=== PATIENT | female | born 1995 | race Caucasian/White ===

== ENCOUNTER → 2022-07-02 15:03 | Outpatient (BNVA) | payer OTHER, SELFPAY | PROVIDERS: PCP Internal Medicine; Visit Provider Nurse Practitioner Family | DX: Z13.89 Encounter for screening for other disorder (principal) ==

== ENCOUNTER 2022-08-13 15:08 | Outpatient (REF) | payer OTHER, SELFPAY ==
--- NOTE | ~2022-08-13 | CT_ITS ---
EXAMINATION: CT HEAD WITHOUT CONTRAST CLINICAL INFORMATION: Migraine COMPARISON: None available. TECHNIQUE: Contiguous axial imaging was performed from the skull base to vertex without intravenous administration of contrast. This CT examination was performed using dose optimization techniques as appropriate, variously including the following: *Automated exposure control *Adjustment of mA and/or kV according to patient size (this includes techniques or standardized protocols for targeted exams where dose is matched to indication/reason for exam; i.e. extremities or head) *Use of iterative reconstruction technique DLP: 847 mGy-cm FINDINGS: There is no evidence of an extra-axial collection. There is no evidence of intra-axial or extra-axial hemorrhage. Ventricles and extra-axial CSF spaces are appropriate. Dennison-white matter differentiation is normal. No mass, mass effect or infarct. Review of bone windows is normal. Paranasal sinuses, mastoid air cells and middle ears are clear. CT/CT head/brain wo IV con IMPRESSION: Unremarkable exam.
== END 2022-08-13 15:09 | disposition home or self-care (01) ==
LOC: HO.CT 15:08
PROVIDERS: PCP Registered Nurse; Visit Provider Nurse Practitioner Family
DX: G43.009 Migraine without aura, not intractable, without status migrainosus (principal); Z82.49 Family history of ischemic heart disease and other diseases of the circulatory system
CPT/HCPCS: 70450

== ENCOUNTER 2022-10-15 15:27 | Outpatient (REF) | payer OTHER, SELFPAY ==
--- NOTE | ~2022-10-15 | CT_ITS ---
CT ANGIOGRAM BRAIN, HEAD CLINICAL INFORMATION: Migraine headaches. COMPARISON: Head CT 08/13/2022. TECHNIQUE: Test bolus sequences followed by intravenous administration 75 mL of Omnipaque 350 intravenous contrast. Helical imaging was performed in the axial plane from the skull base to the vertex. Delayed postcontrast imaging of the head was also performed. The data was processed at the cytotechnologist/histotechnologist workstation for generation of MIP sequences. Three-dimensional volume rendered reformatted images were also generated at an offline 3-D workstation. The degree of stenosis determined by NASCET criteria. This CT examination was performed using dose optimization techniques as appropriate, variously including the following: *Automated exposure control *Adjustment of mA and/or kV according to patient size (this includes techniques or standardized protocols for targeted exams where dose is matched to indication/reason for exam; i.e. extremities or head) *Use of iterative reconstruction technique FINDINGS: Very limited CTA of the head due to mixed arterial/venous bolus phase timing. The proximal arterial vasculature remains patent. Nondiagnostic assessment for aneurysms due to the degree of artifact. If there is high clinical suspicion for an underlying aneurysm, consider a MRA of the head or repeat CTA for further assessment. There is no pathologic enhancement intracranially. There is no intracranial hemorrhage, hydrocephalus, extra-axial surface collection, midline shift, or other herniation pattern. Dennison to white matter differentiation is diffusely maintained without evidence of an evolved acute territorial infarct. The basilar cisterns are preserved. No significant soft tissue abnormality. No acute osseous abnormality. The paranasal sinuses and the mastoid air cells are well aerated. CT/CT angio head IMPRESSION: Very limited CTA of the head due to mixed arterial/venous bolus phase timing. The proximal arterial vasculature remains patent. Nondiagnostic assessment for aneurysms due to the degree of artifact. If there is high clinical suspicion for an underlying aneurysm, consider a MRA of the head or repeat CTA for further assessment.
[2022-10-15] MEDS: iohexoL 350 MG/ML 100 ML INFUS..BTL 75 ML IV (16:13)
== END 2022-10-15 15:28 | disposition home or self-care (01) ==
LOC: HO.CT 15:27
PROVIDERS: PCP Registered Nurse; Visit Provider Nurse Practitioner Family
DX: G43.909 Migraine, unspecified, not intractable, without status migrainosus (principal); Z82.49 Family history of ischemic heart disease and other diseases of the circulatory system
CPT/HCPCS: 70496; Q9967

== ENCOUNTER 2023-03-04 14:03 | Outpatient (AMB) | payer OTHER, SELFPAY ==
--- NOTE | 2023-03-04 14:04 | MHC.OFFVIS ---
Intake Vital Signs 03/04/23 14:06 Height 5 ft 6 in Weight 218 lb BMI 35.2 BP 116/74 Blood Pressure Location Rt brachial Pulse 76 Pulse Source Pulse Oximeter Pulse Oximetry (%) 98 Oxygen Delivery Method Room Air Intake Visit Reasons: 2m follow up Headache-LVM Intake Note: Patient presents for 3 month follow up. Patient states My headaches are better but it's been fluctuating. Allergies haloperidol Adverse Reaction (Unknown, Verified 03/04/23 14:07) Anxiety Medication List - Last Reconciled 03/04/23 by FREDDY [place] hydroxyzine HCl 25 mg PO ONCE PRN levonorgestrel-ethinyl estrad 0.1-20 mg-mcg (Sronyx) 1 tab PO DAILY lorazepam 0.5 mg PO Q12H PRN magnesium glycinate mg PO prenat.vits,sophia,[id number]-[id number] 1 tab PO DAILY sumatriptan succinate 50 - 100 mg orally at onset of headache, may repeat in 2 hrs PRN; max 2 tabs per day or 4 tabs/week (may take with Ibuprofen) 30 days theanine mg PO PRN HPI HPI Comments History of Present Illness Details 27-yr-old female presents for f/u visit. Pt reports she has had a recent left 5th metatrasal foot fracture- rolled her ankle while walking her dogs. She is using a walking boot. She is f/b [facility]. After the last visit, she did have a period of increased migraine attacks- up to 1 per week. She then started Mag Glycinate and a w/ Riboflavin- and the migraine attacks decreased in intensity. She more recently stopped her OCP, and this has helped headache and mood, she has been having 1-2 migraine attacks per month. Triggers include anxiety, stress, social triggers, tired. Typical migraine is still left sided. More stress or social headaches is more right sided. She is using Sumatriptan 1/3 tab (even a 1/2 of that)- tolerating well. Pt's CTA was non-diagnostic- the bolus dose was timed wrong. She plans to reschedule soon. Pt plans to have upcoming eye exam. PFSH Surgical History [place] teeth extracted Family History Mother Cataract Aneurysm Hypertension Hypotension Father Skin cancer Hypertension Maternal Grandmother Diabetes Hypertension Arthritis Heart disease Paternal Grandfather Diabetes Hypertension Neuropathy Maternal Grandfather Hypertension Sister Hypothyroid Social History Alcohol intake: current Alcohol intake frequency: a few times a month Patient Tobacco Use Status: Never used Tobacco Review of Systems Const All systems reviewed & are unremarkable except as noted in HPI and below Physical Exam Vital Signs: Last Vital Signs Pulse 76 03/04/23 14:06 BP 116/74 03/04/23 14:06 Pulse Ox 98 03/04/23 14:06 Oxygen Delivery Method Room Air 03/04/23 14:06 BMI result Body Mass Index 35.2 Const General: cooperative and no acute distress Orientation/consciousness: patient oriented x3 HEENT Head: Yes normocephalic Resp Effort & Inspection: normal respiratory effort and able to speak in complete sentences Neuro General: patient oriented x3, gait normal and CN's II-XI intact bilaterally Cognition (Neuro): normal cognition Motor exam (neuro): 5/5 motor strength present throughout Psych Appearance: grossly normal Mental Status: mental status grossly normal Speech and movement: Normal speech and movement present Affect: normal affect Attitude: cooperative Thought process: Normal thought process present Thought content: Normal thought content present Insight: Good insight present (Psych) Judgement: Good judgement present (Psych) Assessment & Plan Assessment & Plan (1) Migraine without aura: Code(s): G43.009 - Migraine without aura, not intractable, without status migrainosus (2) Menstrual migraine: Code(s): G43.829 - Menstrual migraine, not intractable, without status migrainosus (3) Family history of intracranial aneurysms: Code(s): Z82.49 - Family history of ischemic heart disease and other diseases of the circulatory system (4) Foot fracture, left: Code(s): S92.902A - Unspecified fracture of left foot, initial encounter for closed fracture Plan Pt again advised to undergo CTA w/wo as her mother has h/o ruptured intracerebral aneurysm. ? For overall headache management: Discussed importance of good self-care, including but not limited to maintaining a healthy diet, adequate fluid intake, adequate sleep, and engaging in regular physical activity. Track headaches, especially after any treatment regimen changes. [employer]raine [employer] is one of many headache tracking apps. Reviewed miagrine treatment and . ? For acute headache treatment: Sumatriptan 25-100mg prn, MR in 2 hrs. May adjunct w/ OTC Tylenol, ASA, Ibuprofen, or Naproxen liquid gels. May try taking Naproxen, Ibuprofen, Sumatriptan 1-2 days prior to usual onset of mentsrual migraine. Previous acute migraine medication trials: OTC ASA, Advil, Tylenol. Acute migraine medication contraindications: None ? For headache prevention medication: Reviewed supplements: OTC Riboflavin 400mg qam OTC Magnesium 400-500mg qhs Feverfew Previous migraine prevention medication trials: None Migraine prevention medication contraindications: None ? Information also given on non-pharmacological interventions, such as Nerivio neuromodulation devices. ? f/u in 6 months or sooner prn. Coding Level of Care Code Est Pt Level 4 (85104) Diagnoses Migraine without aura G43.009 Menstrual migraine G43.829 Family history of intracranial aneurysms Z82.49 Foot fracture, left S94.903T
[2023-03-04 14:06] VITALS: BP 116/74; PULSE 76; O2SAT 98; BMI 35.2
== END 2023-03-04 15:03 | disposition home or self-care (01) ==
PROVIDERS: Visit Provider Nurse Practitioner Family
DX: G43.009 Migraine without aura, not intractable, without status migrainosus (principal); G43.829 Menstrual migraine, not intractable, without status migrainosus; Z82.49 Family history of ischemic heart disease and other diseases of the circulatory system; S92.902A Unspecified fracture of left foot, initial encounter for closed fracture
CPT/HCPCS: 99214

== ENCOUNTER → 2023-03-04 14:03 | Outpatient (BNVA) | payer OTHER, SELFPAY | PROVIDERS: Visit Provider Nurse Practitioner Family ==

== ENCOUNTER 2023-09-02 14:31 | Outpatient (AMB) | payer OTHER, SELFPAY ==
--- NOTE | 2023-09-02 14:32 | MHC.OFFVIS ---
Vital Signs 09/02/23 14:35 Height 5 ft 6 in Weight 221 lb 6 oz BMI 35.7 BP 116/72 Blood Pressure Location Rt brachial Position Sitting Pulse 76 Pulse Source Pulse Oximeter Pulse Oximetry (%) 98 Oxygen Delivery Method Room Air Intake Visit Reasons: 6M follow up - LVM w/add Allergies haloperidol Adverse Reaction (Unknown, Verified 09/02/23 14:35) Anxiety Medication List - Last Reconciled 09/02/23 by FREDYD [place] hydroxyzine HCl 25 mg PO ONCE PRN levonorgestrel-ethinyl estrad 0.1-20 mg-mcg (Sronyx) 1 tab PO DAILY lorazepam 0.5 mg PO Q12H PRN magnesium glycinate mg PO prenat.vits,sophia,wgk-ovqb-doaaj 1 tab PO DAILY sumatriptan succinate 50 - 100 mg orally at onset of headache, may repeat in 2 hrs PRN; max 2 tabs per day or 4 tabs/week (may take with Ibuprofen) 30 days theanine mg PO PRN HPI Comments Details: 27-yr-old female presents for f/u visit. Pt denies any significant interval medical changes. Pt continues to have 3 left-sided migraine days per month, and the tired headache less often- maybe 2-3 x's in the past yr. May have a low level headache at times- maybe Triggers include stress, not sleeping well, menses. Pt states that she is better at taking her Sumatriptan at onset of migraine. May use Advil for her milder I'm tired headache . Using Sumatriptan 1/4-1/2 tab prn. May try to use sleep to help as well. Compliant w/ Prenatals, Mag Glycinate, and recently bought Riboflavin. Baseline headache characteristics: 1- Moderate to severe Throbbing, left eyebrow/eye. Constant throbbing a/w photophobia, phonophobia, anorexia, vomited x's 2, brain fog. 2- Tired headache , milder more right-sided a/w photophobia and phonophobia, decreased appetite but no N/V. PFSH Surgical History [place] teeth extracted Family History Mother Cataract Aneurysm Hypertension Hypotension Father Skin cancer Hypertension Maternal Grandmother Diabetes Hypertension Arthritis Heart disease Paternal Grandfather Diabetes Hypertension Neuropathy Maternal Grandfather Hypertension Sister Hypothyroid Social History Alcohol intake: current Alcohol intake frequency: a few times a month Patient Tobacco Use Status: Never used Tobacco Physical Exam Vital Signs: Last Vital Signs Pulse 76 09/02/23 14:35 BP 116/72 09/02/23 14:35 Pulse Ox 98 09/02/23 14:35 Oxygen Delivery Method Room Air 09/02/23 14:35 BMI result Body Mass Index 35.7 Const General: cooperative and no acute distress Orientation/consciousness: patient oriented x3 Resp Effort & Inspection: normal respiratory effort and able to speak in complete sentences Neuro General: patient oriented x3 Cranial nerves: Yes CN's II-XII intact bilaterally Cognition (Neuro): normal cognition Psych Appearance: grossly normal Mental Status: mental status grossly normal Speech and movement: Normal speech and movement present Affect: normal affect Attitude: cooperative Assessment & Plan Assessment & Plan (1) Migraine without aura: Code(s): G43.009 - Migraine without aura, not intractable, without status migrainosus Category: Medical (2) Menstrual migraine: Code(s): G43.829 - Menstrual migraine, not intractable, without status migrainosus Category: Medical (3) Family history of intracranial aneurysms: Code(s): Z82.49 - Family history of ischemic heart disease and other diseases of the circulatory system Category: Medical Plan Reviewed CTA w/wo- no aneurysm high grade stenosis, or vascular malformation. ? For overall headache management: Continue good self-care, including but not limited to maintaining a healthy diet, adequate fluid intake, adequate sleep, and engaging in regular physical activity. Track headaches. Reviewed migraine treatment and . ? For acute headache treatment: Start Nerivio neurostimulation device- 45 min stimulation qd prn- form signed today Sumatriptan 25-100mg prn, MR in 2 hrs. May adjunct w/ OTC Tylenol, ASA, Ibuprofen, or Naproxen liquid gels. May try taking Naproxen, Ibuprofen, Sumatriptan 1-2 days prior to usual onset of menstrual migraine. Previous acute migraine medication trials: OTC ASA, Advil, Tylenol. Acute migraine medication contraindications: None ? For headache prevention medication: OTC Riboflavin 400mg qam OTC Magnesium 400-500mg qhs Feverfew Previous migraine prevention medication trials: None Migraine prevention medication contraindications: None ? Information also shared on migraine education/podcast/website resources.. ? f/u in 6 months or sooner prn. Medications: Refilled sumatriptan succinate (0.5 - 1 x 100 mg) 50 - 100 mg orally at onset of headache, may repeat in 2 hrs PRN; max 2 tabs per day or 4 tabs/week (may take with Ibuprofen) 30 days 12 tabs 6RF migraine headache Coding Level of Care Code Est Pt Level 4 (52851) Diagnoses Migraine without aura G43.009 Menstrual migraine G43.829 Family history of intracranial aneurysms Z82.49
[2023-09-02 14:35] VITALS: BP 116/72; PULSE 76; O2SAT 98; BMI 35.7
== END 2023-09-02 15:32 | disposition home or self-care (01) ==
PROVIDERS: PCP Registered Nurse; Visit Provider Nurse Practitioner Family
DX: G43.009 Migraine without aura, not intractable, without status migrainosus (principal); G43.829 Menstrual migraine, not intractable, without status migrainosus; Z82.49 Family history of ischemic heart disease and other diseases of the circulatory system
CPT/HCPCS: 99214

== ENCOUNTER → 2023-09-02 14:31 | Outpatient (BNVA) | payer OTHER, SELFPAY | PROVIDERS: PCP Registered Nurse; Visit Provider Nurse Practitioner Family ==

== ENCOUNTER 2024-09-26 14:42 | Outpatient (AMB) | payer OTHER, SELFPAY ==
[2024-09-26 14:44] VITALS: BP 108/62; PULSE 89; O2SAT 96; BMI 33.4
--- NOTE | 2024-09-26 14:44 | A.OFFVIS_ITS ---
Vital Signs 09/26/24 14:44 Height 5 ft 6 in Weight 207 lb BMI 33.4 BP 108/62 Blood Pressure Location Rt brachial Position Sitting Pulse 89 Pulse Source Pulse Oximeter Pulse Oximetry (%) 96 Oxygen Delivery Method Room Air Intake Visit Reasons: 7 Moth Follow Up Intake Note: Patient presents follow up Migraine. Allergies haloperidol Adverse Reaction (Unknown, Verified 09/26/24 14:48) Anxiety HPI Comments Details: 29-yr-old female presents for a f/u visit for migraines. Pt denies any significant interval medical changes, she is now 3 months . She continues to have 3 left-sided migraine days per month, and dull headaches less often- maybe 2-3 x's in the past yr. May have a low level headache at times but nothing that requires medication. Triggers include stress, not sleeping well, menses, now having 2 during her menses. Pt states that she is better at taking her Sumatriptan at onset of migraine. May use Advil for her milder I'm tired headache . She often uses Sumatriptan 1/4-1/2 tab prn, along with her baby aspirin 81mg to help manage symptoms and improve sleep. She contineus to take her prenatals, along with Mag Glycinate, vitamin d, and recently bought Riboflavin to add to her nightly routine. Denies RLS She has improved her water intake and always stays hydrated. She attends hot yoga once a week. Baseline headache characteristics: 1- Moderate to severe Throbbing, left eyebrow/eye. Constant throbbing a/w photophobia, phonophobia, anorexia, vomited x's 2, brain fog. 2- Tired headache , milder more right-sided a/w photophobia and phonophobia, decreased appetite but no N/V. PFSH Surgical History [place] teeth extracted Family History Mother Cataract Aneurysm Hypertension Hypotension Father Skin cancer Hypertension Maternal Grandmother Diabetes Hypertension Arthritis Heart disease Paternal Grandfather Diabetes Hypertension Neuropathy Maternal Grandfather Hypertension Sister Hypothyroid Social History Alcohol intake: current Alcohol intake frequency: a few times a month Patient Tobacco Use Status: Never used Tobacco Physical Exam Vital Signs: Last Vital Signs Pulse 89 09/26/24 14:44 BP 108/62 09/26/24 14:44 Pulse Ox 96 09/26/24 14:44 Oxygen Delivery Method Room Air 09/26/24 14:44 BMI result Body Mass Index 33.4 Const General: cooperative, comfortable and no acute distress Orientation/consciousness: patient oriented x3 HEENT Face and sinus: Yes normal facial exam and Yes face symmetric Eyes Pupils: Equal, round and reactive pupils present Neck Neck: Yes full ROM and Yes supple Resp Effort & Inspection: normal respiratory effort and able to speak in complete sentences Neuro General: patient oriented x3 and moves all extremities Cranial nerves: Yes Facial sensation intact/muscles of mastication intact, Yes Equal, round and reactive pupils present, Yes Normal accommodation reflex present, Yes Normal facial strength present, Yes Midline tongue present, Yes Ability to bilaterally rotate head present and Yes Ability to bilaterally elevate shoulders present Cognition (Neuro): normal cognition Gait exam (Neuro): Normal gait present Motor exam (neuro): 5/5 motor strength present throughout and Normal motor muscle tone present throughout Psych Appearance: grossly normal Affect: normal affect Attitude: cooperative Thought content: Normal thought content present Assessment & Plan Assessment & Plan (1) Migraine without aura: Code(s): G43.009 - Migraine without aura, not intractable, without status migrainosus Category: Medical Qualifiers: Intractability: intractable Status migrainosus presence: without status migrainosus Qualified Code(s): G43.019 - Migraine without aura, intractable, without status migrainosus (2) Menstrual migraine: Code(s): G43.829 - Menstrual migraine, not intractable, without status migrainosus Category: Medical Qualifiers: Status migrainosus presence: without status migrainosus Intractability: intractable Qualified Code(s): G43.839 - Menstrual migraine, intractable, without status migrainosus (3) Family history of intracranial aneurysms: Code(s): Z82.49 - Family history of ischemic heart disease and other diseases of the circulatory system Category: Medical Plan Reviewed CTA w/wo- no aneurysm high grade stenosis, or vascular malformation. ? For overall headache management: Continue good self-care, including but not limited to maintaining a healthy d iet, adequate fluid intake, adequate sleep, and engaging in regular physical activity. Track headaches. ? For acute headache treatment: Start Nerivio neurostimulation device- 45 min stimulation qd prn- form signed today Sumatriptan 25-100mg prn, MR in 2 hrs. May adjunct w/ OTC Tylenol, ASA, Ibuprofen, or Naproxen liquid gels. May try taking Naproxen, Ibuprofen, Sumatriptan 1-2 days prior to usual onset of menstrual migraine. Previous acute migraine medication trials: OTC ASA, Advil, Tylenol. Acute migraine medication contraindications: None ? For headache prevention medication: OTC Riboflavin 400mg qam OTC Magnesium 400-500mg qhs Feverfew Previous migraine prevention medication trials: None Migraine prevention medication contraindications: None ? Information also shared on migraine education/podcast/website resources.. ? f/u in 6 months or sooner prn. Medications: Refilled sumatriptan succinate 50 - 100 mg orally at onset of headache, may repeat in 2 hrs PRN; max 2 tabs per day or 4 tabs/week (may take with Ibuprofen) 12 tabs 6RF migraine headache 30 days G43.009 - Migraine without aura, not intractable, without status migrainosus Patient Instructions: Sleep Hygiene provided: set a scheduled bedtime and wake time to help regulate the circadian rhythm and balance the release of pituitary hormones. Sleep in a dark room, temperatures below 68 degrees, and no devices n bed. Limit caffeina denise products 6 hours prior to bed, and limit fluids 2-4 hours prior to bed. Gentle night yoga, diffusing essential oils, and playing soft music can be relaxing. Coding Level of Care Code Est Pt Level 4 (93775) Diagnoses Intractable migraine without aura and without status migrainosus G43.019 Intractability: intractable Status migrainosus presence: without status migrainosus Intractable menstrual migraine without status migrainosus G43.839 Status migrainosus presence: without status migrainosus Intractability: intractable Family history of intracranial aneurysms Z82.49 Time Spent (min) 25
== END 2024-09-26 15:33 | disposition home or self-care (01) ==
LOC: HO.HSMS 14:43
PROVIDERS: PCP Registered Nurse; Visit Provider Physician Assistant Medical
DX: G43.019 Migraine without aura, intractable, without status migrainosus (principal); G43.839 Menstrual migraine, intractable, without status migrainosus; Z82.49 Family history of ischemic heart disease and other diseases of the circulatory system
CPT/HCPCS: 99214